=== PATIENT | male | born 1930 | race Caucasian/White ===

== ENCOUNTER 2018-12-23 13:05 | Emergency (ER) | payer OTHER, MEDICARE ==
[2018-12-23] MEDS ORDERED: NS 1,000 ML IV ONE (14:13)
--- NOTE | 2018-12-23 14:22 | EDPHY ---
H & P Stated Complaint: Hematuria last nt, cath placed, heavy bleeding and pain, anticoags Time Seen by Provider: 12/23/18 14:06 HPI/ROS: CHIEF COMPLAINT: Hematuria HISTORY OF PRESENT ILLNESS: The patient is an 88-year-old man with a history of BPH who 1 week ago had Botox injected into his bladder also history of atrial fibrillation on Coumadin and Parkinson's disease. He developed hematuria last night and went to [facility] emergency department where they placed a Vazquez catheter and told him to follow up with urologist today. He presented to Dr. Moy is office today and for some reason they sent him to the ER. The patient is not sure why. He states that he did not get to see Dr. Moy. He states that they did check his INR last night was 1.8 which is slightly lower than his goal of 2. Patient's does state that he feels somewhat weak generally. Severity: Moderate Modifying factors: None REVIEW OF SYSTEMS: Constitutional: denies: chills, fever, recent illness, recent injury EENTM: denies: blurred vision, double vision, nose congestion Respiratory: denies: cough, shortness of breath Cardiac: denies: chest pain, irregular heart rate, lightheadedness, palpitations Gastrointestinal/Abdominal: denies: abdominal pain, diarrhea, nausea, vomiting, blood streaked stools Genitourinary: See HPI Musculoskeletal: denies: joint pain, muscle pain Skin: denies: lesions, rash, jaundice, bruising Neurological: denies: headache, numbness, paresthesia, tingling, dizziness, weakness Hematologic/Lymphatic: denies: blood clots, easy bleeding, easy bruising Immunologic/allergic: denies: HIV/AIDS, transplant 10 systems reviewed and negative except as noted EXAM: GENERAL: Well-appearing, well-nourished and in no acute distress. HEAD: Atraumatic, normocephalic. EYES: Pupils equal round and reactive to light, extraocular movements intact, sclera anicteric, conjunctiva are normal. ENT: TMs normal, nares patent, oropharynx clear without exudates. Moist mucous membranes. NECK: Normal range of motion, supple without lymphadenopathy or JVD. LUNGS: Breath sounds clear to auscultation bilaterally and equal. No wheezes rales or rhonchi. HEART: Regular rate and rhythm without murmurs, rubs or gallops. ABDOMEN: Soft, nontender, normoactive bowel sounds. No guarding, no rebound. No masses appreciated. : Vazquez catheter in place. No leaking. Fruit punch colored urine. BACK: No CVA tenderness, no spinal tenderness, step-offs or deformities EXTREMITIES: Normal range of motion, no pitting or edema. No clubbing or cyanosis. NEUROLOGICAL: Cranial nerves II through XII grossly intact. Normal speech, normal gait. 5/5 strength, normal movement in all extremities, normal sensation , normal reflexes PSYCH: Normal mood, normal affect. SKIN: Warm, dry, normal turgor, no visible rashes or lesions. Source: Patient Exam Limitations: No limitations - Medical/Surgical History Hx Asthma: No Hx Chronic Respiratory Disease: No Hx Diabetes: No Hx Cardiac Disease: Yes Hx Renal Disease: No Hx Cirrhosis: No Hx Alcoholism: No Hx HIV/AIDS: No Hx Splenectomy or Spleen Trauma: No Other PMH: A-fib parkisons Mi cath 2008, home o2 when needed - Family History Significant Family History: No pertinent family hx - Social History Smoking Status: Former smoker Alcohol Use: None Constitutional: Initial Vital Signs Temperature (C) 37.1 C 12/23/18 13:16 Heart Rate 65 12/23/18 13:16 Respiratory Rate 18 12/23/18 13:16 Blood Pressure 153/84 H 12/23/18 13:16 O2 Sat (%) 93 12/23/18 13:16 O2 Delivery Mode Room Air O2 (L/minute) 2 Allergies/Adverse Reactions: NSAIDS (Non-Steroidal Anti-Inflamma Allergy (Intermediate, Verified 12/23/18 13: 14) Other-Enter Comments Home Medications: Medication Instructions Recorded Acetaminophen [Tylenol ES 500 mg 500 mg PO Q6 PRN 01/16/18 (*)] Calcium Carb W/Vit D [Calcium Carb 500 mg PO BID 01/16/18 W/Vit D 500/200 (*)] Cholecalciferol (Vitamin D3) 5,000 unit PO DAILY 01/16/18 [Vitamin D3] Codeine Phosphate/Guaifenesin 10 ml PO Q4 PRN 01/16/18 [Guaifen-Codeine 200-20 mg/10Ml] LORazepam [Ativan (*)] 0.25 mg PO BID 01/16/18 Lidocaine [Lidoderm] 1 each TP HS 01/16/18 Lisinopril [Zestril 10 mg (*)] 10 mg PO DAILY 01/16/18 Multivitamins [Multivitamin (*)] 1 each PO DAILY 01/16/18 Ondansetron Odt [Zofran Odt 4 mg 4 mg PO Q4 PRN 01/16/18 (*)] Ranitidine HCl [Zantac] 300 mg PO DAILY 01/16/18 Vit A/Vit C/Vit E/Zinc/Copper 1 each PO BID 01/16/18 [Preservision Areds Tablet] oxyCODONE IR [Oxycodone Ir (*)] 5 mg PO DAILY@22 01/16/18 Warfarin Sodium 12/23/18 Medical Decision Making ED Course/Re-evaluation: 2:20 p.m. We spoke with the urology office. They state that they did not send the patient here and do not think that he needs to be here. They did not recommend any testing. They did state that he has had similar concerns in the past with multiple workups that have been nonproductive. I spoke with the patient about the workup that I have ordered. He declines this and states that they just did blood work yesterday. Advised him to hold his Coumadin for the next 2 days before restarting. He did take it last night. His vital signs are stable here and he is declining workup. Will discharge him at this time. He will follow up in [address] Moy as previously planned. Differential Diagnosis: Partial list of the Differential diagnosis considered include but were not limited to; hematuria, anxiety, anemia and although unlikely based on the history and physical exam, I also considered hemorrhage, infection, perforation. I discussed these differential diagnoses and the plan with the patient as well as the usual and expected course. The patient understands that the diagnosis is provisional and that in medicine we are not always correct and that further workup is often warranted. Usual and customary warnings were given. All of the patient's questions were answered. The patient was instructed to return to the emergency department should the symptoms at all worsen or return, otherwise to followup with the physician as we discussed. Departure - Departure Disposition: Home, Routine, Self-Care Clinical Impression: BPH with urinary obstruction Hematuria Qualifiers: Hematuria type: gross Qualified Code(s): R31.0 - Gross hematuria Condition: Fair Instructions: Enlarged Prostate (BPH) (ED), Hematuria (ED) Referrals: Nicola Pimentel [Primary Care Provider] - As per Instructions Zechariah Moy MD [Medical Doctor] - As per Instructions
[2018-12-23 14:54] VITALS: BP 160/88
== END 2018-12-23 14:50 | disposition home or self-care (01) ==
DX: N40.0 Benign prostatic hyperplasia without lower urinary tract symptoms (principal); N13.9 Obstructive and reflux uropathy, unspecified; R31.9 Hematuria, unspecified; E86.9 Volume depletion, unspecified; I48.91 Unspecified atrial fibrillation; G20 Parkinson's disease; Z79.01 Long term (current) use of anticoagulants; Z87.891 Personal history of nicotine dependence